=== PATIENT | male | born 1990 | race Caucasian/White ===

== ENCOUNTER 2024-06-14 09:41 | Emergency (ER) | payer MEDICAID ==
[~2024-06-14] VITALS: Ht 172.7 cm; Wt 85.0 kg
[2024-06-14 09:58] VITALS: BP 130/97; PULSE 75; RESP 18; TEMP 36.7; O2SAT 99
[2024-06-14] MEDS ORDERED: TOPUD PO (10:17)
[2024-06-14] MEDS: FLUTICASONE PROPIONATE 50MCG/SPRAY BOTTLE BOTHNSTRLS STA (11:22)
[2024-06-14] MEDS: ACETAMINOPHEN 325MG TABLET PO ONE (11:22)
== END 2024-06-14 11:26 | disposition home or self-care (01) ==
LOC: ER 09:41
DX: J32.9 Chronic sinusitis, unspecified (principal); Z88.5 Allergy status to narcotic agent; Z79.899 Other long term (current) drug therapy
CPT/HCPCS: 99282